=== PATIENT | male | born 1990 | race Caucasian/White ===

== ENCOUNTER 2024-04-18 15:22 | Emergency (ER) | payer MEDICAID, SELFPAY ==
[2024-04-18 15:23] VITALS: BP 138/95; PULSE 85; RESP 19; TEMP 36.6; O2SAT 100
--- NOTE | 2024-04-18 16:18 | CT_ITS ---
INDICATION: head trauma w/ LOC EXAMINATION: CT BRAIN - CT Head or Brain W/O Contrast Injection TECHNIQUE: Multiple axial images were obtained of the head without intravenous contrast. A radiation dose optimization technique was used for this scan. IV Contrast dosage and agent: None. COMPARISON: None. FINDINGS: BRAIN PARENCHYMA: No intra- or extra-axial hemorrhage. No evidence of acute infarct. No intracranial mass or mass effect. There is preservation of the nettles/white matter interface. Posterior fossa structures are unremarkable. CSF SPACES: Appropriate for age. No hydrocephalus. Basal cisterns are patent. CALVARIUM, SKULL BASE, PARANASAL SINUSES AND MASTOID AIR CELLS: Clear. No acute fractures. ORBITS: 4 mm metallic density BB at the anterior aspect of the right orbital floor. CT/Brain/Head without Contrast IMPRESSION: No acute intracranial findings. Electronically Signed: Jose Varela MD at 17:07 EST ,
--- NOTE | 2024-04-18 16:21 | EDS_ITS ---
HPI History of Present Illness Chief Complaint: Head Injury Informant: patient Onset/Context/Timing Onset: Today and Hours Context: Sudden Onset Current Severity: Mild Maximum Severity: Mild Narrative Narrative: 33-year-old male no significant past medical or surgical history. Currently states he is on no medications and no blood thinners. Slipped on the ice earlier today fell backwards hit a step and believes he was unconscious for 1 to 2 minutes. Denies any other complaints. No neck pain. No other injuries. Mild headache. Not severe. No numbness or tingling. No nausea or vomiting. Prior similar symptoms: No Recent Illness/Hospitalization: No PFSH PFSH Medical History no medical history no medical history Home Medications ?Medication ?Instructions ?Recorded ?Last Taken ?Type clindamycin HCl 300 mg capsule 300 mg PO Q8 ##21 04/17/14 Unknown Rx Allergy/AdvReac Type Severity Reaction Status Date / Time No Known Allergies Allergy Verified 04/17/14 23:22 Social History Smoking Status: Current every day smoker tobacco type: cigarettes ROS ROS ED ROS Narrative Denies recent illness. Headache after the fall today. Constitutional Constitutional ED: Denies chills or fever(s) Eyes Eyes: Denies blurry vision ENT ENT ED: Denies ear pain Respiratory/Chest Respiratory/Chest: Denies cough or dyspnea Gastrointestinal Gastrointestinal: Denies abdominal pain, nausea or vomiting Genitourinary Genitourinary ED: Denies dysuria or hematuria Musculoskeletal Musculoskeletal: Denies arthralgias or back pain Integumentary Denies abscess Neurologic Neurologic: Reports headache(s); Denies paresthesias or weakness Psychiatric Psychiatric: Denies anxiety Endocrine Endocrinology: Denies cold intolerance Hematologic/Lymphatic Hematologic/Lymphatic: Reports none Allergic/Immunologic Allergic/Immunologic ED: Denies mouth swelling, tongue swelling or urticaria EXAM Physical Exam Narrative Exam Narrative: Well-appearing 33-year-old male sitting upright in bed. Significant other at bedside with him. Vital signs are stable afebrile. H EENT exam pupils round r eact to light. His scalp is very tenderness in the posterior occiput. There is no laceration. There is no blood. There is no significant hematoma. It is mildly tender. No bony deformity. Neck nontender. Normal range of motion. Trachea midline. Lungs good auscultation bilaterally. Heart regular rhythm rate about 85 no murmur. Chest wall ribs nontender. Abdomen soft nontender. Pelvic girdle intact. Back nontender. Spine nontender. No bruising. Moving all 4 extremities. Normal financial representative strength. Normal dorsi plantarflexion. Normal strength and sensation. Normal range of motion both upper and lower extremities. Neurologically is awake and alert. Answering questions following commands. GCS 15. Const Vital Signs: 04/18/24 15:23 04/18/24 16:57 Temperature 97.8 F Temperature Source Temporal Pulse Rate 85 Respiratory Rate 19 H Respiratory Effort Normal Non-Labored Respiratory Depth Normal Respiratory Pattern Normal Blood Pressure 138/95 H Blood Pressure Mean 109 Pulse Ox 100 Oxygen Delivery Method Room Air Room Air Positive well nourished and well developed; Negative for cachectic, contractures or unkempt General Appearance ED: well developed and NAD; Negative for unkempt, cachectic, contractures, cyanotic, diaphoretic or pallor Nutritional Appearance: Negative for cachectic HEENT Reports moist mucous membranes HEENT Narrative: Posterior scalp tenderness. No hematoma. No laceration or blood. trauma and tenderness Eyes PERRL and EOMs intact bilaterally General Eye ED: Negative for pale conjunctiva or scleral icterus Neck no lymphadenopathy, supple and no JVD General: Negative for tenderness Chest Wall inspection of chest normal and palpation of chest normal Resp normal respiratory effort and clear to auscultation bilaterally Effort and Inspection: Negative for retractions Auscultation: Negative for rales, rhonchi, wheezes or diminished lung sounds Cardio regular rate, regular rhythm, S1 normal heart sound, S2 normal heart sound and no murmurs GI normal to inspection, nondistended, normoactive bowel sounds, non-tender, non- distended and no masses Palpation: soft; Negative for tender, guarding, mass or rebound tenderness present Back/Spine no CVA tenderness General Back: Negative for CVA tenderness Cervical Spine: Negative for cervical spine tenderness Thoracic Spine / Upper Back: Negative for thoracic spinal tenderness or paraspinal muscle tenderness Lumbar Spine / Lower Back: Negative for lumbar spinal tenderness Extremity normal to inspection General Extremety ED: Negative for edema or tenderness General Extremity: Negative for edema Neuro oriented x3 and CN's II-XII intact bilaterally Sensorium / Orientation: alert; Negative for orientation impaired, lethargic or stuporous Motor Exam: strength 5/5 throughout; Negative for general weakness or strength abnormal Psych mental status grossly normal Appearance: Negative for unkempt Attitude: No agitated Mood & Affect: Negative for depressed, anxious or tearful Skin no rashes or lesions noted and no wounds General Skin Exam: Negative for jaundice or pallor Lesions: No lesion noted Rashes: No rashes noted Trauma: Negative for abrasion Wounds: Negative for wounds noted MDM MDM MDM Narrative Medical decision making narrative: Healthy 33-year-old male slipped hit the back of his head on a step and believes he was knocked out for 1 to 2 minutes. Currently other than some mild tenderness to the back of his scalp without laceration or hematoma is other rest of his exam is unremarkable. Neurologically he is awake and alert. GCS of 15. CAT scan being obtained. Tylenol for pain. Ice pack to the back of his head. Repeat exam patient is doing well at 5:15 PM. I went over with him his CAT scan results. Head injury instructions. Need to follow-up if he is not improving or return if worse. Symptoms of a concussion. History & Record Review Discussion w/independent historian: Patient Radiography Diagnostic Testing: Clinical Impression(s) from Imaging Studies Brain CT 04/18/24 16:18 IMPRESSION: No acute intracranial findings. Electronically Signed: Jose Varela MD at 17:07 EST Reading Location ID and State: [address] [place] [address] Tel , Service support , Discharge Plan Triage Chief Complaint: Head Injury ED Provider: Chris Del Valle Dx/Rx/DC Orders Clinical Impression: Fall, Closed head injury Instructions: ED Head Injury (Adult) Prescriptions: No Action clindamycin HCl 300 MG capsule 300 mg PO Q8 Qty: 21 0RF Primary Care Provider: Care Physician,No Primary Referrals: Ethan Ding MD [Med Staff - Speech Pathologist Assistant] - As Needed Care Physician,No Primary [Primary Care Provider] - Activity Restrictions/Additional Instructions: Ice to the back your head. Tylenol for pain. Follow-up if not improving or return if you are feeling a lot worse like intractable vomiting or severe severe pain. Your CAT scan was normal. No bleeding. You may continue to have some headaches, dizziness sleepiness for the next several weeks. Most likely you have a mild concussion. That should progressively improve. Print Language: Egyptian Disposition Disposition: Home, Self Care
[2024-04-18] MEDS: Acetaminophen 500 MG Tablet 1000 MG PO (17:10)
--- NOTE | 2024-04-18 18:09 | CM.ED ---
Social Work Reason for visit: No PCP SW introduced self to patient, role with hospital and reason for visit. Patient confirmed that he did not have a primary care physician. [facility] provider list provided. No further needs identified at this time. Blanche Bermudez, LICENSED OPTICIAN, [employer]
== END 2024-04-18 17:18 | disposition home or self-care (01) ==
PROVIDERS: Emergency Provider Emergency Medicine; Referring Provider Emergency Medicine; Visit Provider Emergency Medicine
DX: S06.9X1A Unspecified intracranial injury with loss of consciousness of 30 minutes or less, initial encounter (principal); W00.0XXA Fall on same level due to ice and snow, initial encounter; F17.210 Nicotine dependence, cigarettes, uncomplicated
CPT/HCPCS: 70450; 99282